=== PATIENT | male | born 1965 | race Caucasian/White ===

== ENCOUNTER 2018-12-01 17:24 | Emergency (ER) | payer BC, OTHER ==
[~2018-12-01] VITALS: Ht 180 cm; Wt 101.7 kg
[2018-12-01] MEDS ORDERED: HYDR28.480 TP (17:44)
[2018-12-01] MEDS ORDERED: CEPH-507 PO (17:44)
--- NOTE | 2018-12-01 17:44 | ED Integumentary General ---
General Chief Complaint: Bite-Animal/Human/Insect Stated Complaint: RT ARM SPIDER BITE Source: patient Exam Limitations: no limitations History of Present Illness Date Seen by Provider: Dec 01, 2018 Time Seen by Provider: 17:39 Initial Comments Patient complains of insect bite to his right forearm that he first noticed at noon today. Since then it is increased in size redness and firmness. It also hurts. No fevers or chills. No streaking. Allergies and Home Medications Patient Home Medication List Home Medication List Reviewed: Yes Review of Systems Review of Systems Constitutional: no symptoms reported EENTM: no symptoms reported Respiratory: no symptoms reported Cardiovascular: no symptoms reported Skin: see HPI Past Dnrtacb-Psgcln-Lkpkqc Hx Patient Social History Recent Foreign Travel: No Contact w/Someone Who Travel: No Physical Exam Vital Signs Capillary Refill : General Appearance: WD/WN, no apparent distress Neck: supple Cardiovascular: regular rate, rhythm Respiratory: lungs clear Gastrointestinal: soft Extremities: normal inspection Neurologic/Psychiatric: alert, normal mood/affect Skin: normal color, warm/dry, other (there is noted centimeter diameter area of redness and induration tenderness to the lateral aspect of right mid forearm. There is no fluctuance. No streaking) Departure Impression Primary Impression: Insect bites Additional Impression: Cellulitis of right arm Disposition: 01 HOME, SELF-CARE Condition: Stable Departure-Patient Inst. Decision time for Depature: 17:41 Referrals: NO,LOCAL PHYSICIAN (PCP) Primary Care Physician Patient Instructions: Cellulitis and Erysipelas (Skin Infections) Add. Discharge Instructions: Take medicines as prescribed. Keep arm elevated as much as possible. Seek medical attention if not improving or if worse in the next 24 hours. All discharge instructions reviewed with patient and/or family. Voiced understanding. Scripts Hydrocortisone/Aloe Vera (Hydrocortisone Plus 1% Cream) 28.4 Gm Cream..g. 28.4 GM TP BID, #1 TUBE Prov: OFELIA NEUMANN MD 12/01/18 Cephalexin (Keflex) 500 Mg Capsule 500 MG PO TID for 7 Days, #21 CAP Prov: OFELIA NEUMANN MD 12/01/18 OFELIA NEUMANN MD Dec 01, 2018 17:44
[2018-12-01 17:49] VITALS: BP 151/89
== END 2018-12-01 17:50 | disposition home or self-care (01) ==
LOC: EDUNIT# 17:24 → ER FS 17:26
DX: S50.861A Insect bite (nonvenomous) of right forearm, initial encounter (principal); L03.113 Cellulitis of right upper limb; W57.XXXA Bitten or stung by nonvenomous insect and other nonvenomous arthropods, initial encounter
CPT/HCPCS: 99283

== ENCOUNTER 2020-11-04 07:13 | Emergency (ER) | payer BC ==
[~2020-11-04] VITALS: Ht 180.3 cm; Wt 113.4 kg
[~2020-11-04 07:13] MED LIST: CEPH-507 PO; HYDR28.480 TP
--- NOTE | 2020-11-04 07:26 | ED Cough/URI ---
General Chief Complaint: Cough/Cold/Flu Symptoms Stated Complaint: COUGH; HEADACHE; SOB History of Present Illness Date Seen by Provider: Nov 04, 2020 Time Seen by Provider: 07:25 Initial Comments Patient is a 54-year-old male who presents with complaints of cough, sore throat, body aches, generalized weakness malaise and fever. Symptoms began 3 to 4 days ago and have gradually progressed. Reports mild dyspnea. He is a smoker but denies history of COPD asthma or CHF. No history of coronary artery di sease. Denies leg pain or swelling. Patient has been treating his symptoms with rest and increased fluid consumption although he has continued to work. Patient has not received the Covid vaccination. Timing/Duration: week, getting worse, changing over time Severity/Quality: mild Prior Episodes/Possible Cause: no prior episodes Modifying Factors: Improves With Other Associated Symptoms: chest pain/soreness, cough, fever/chills, nasal congestion, shortness of breath, sore throat Allergies and Home Medications Allergies Coded Allergies: No Known Drug Allergies (Unverified , 12/01/18) Patient Home Medication List Home Medication List Reviewed: Yes Albuterol Sulfate (Proventil Hfa) 6.7 Gm Hfa.aer.ad, 6.7 GM INH Q4H Prescribed by: SUAD WONG on 11/04/20 075 Azithromycin (Zithromax) 250 Mg Tablet, 250 MG PO UD Prescribed by: SUAD WONG on 11/04/20 075 Cephalexin (Keflex) 500 Mg Capsule, 500 MG PO TID Prescribed by: OFELIA NEUMANN on 12/01/18 1744 Hydrocortisone/Aloe Vera (Hydrocortisone Plus 1% Cream) 28.4 Gm Cream..g., 28.4 GM TP BID Prescribed by: OFELIA NEUMANN on 12/01/18 174 Prednisone (Prednisone) 20 Mg Tab, 60 MG PO DAILY Prescribed by: SUAD WONG on 11/04/20 0756 Review of Systems Review of Systems Constitutional: see HPI EENTM: see HPI Respiratory: see HPI Cardiovascular: see HPI Gastrointestinal: see HPI Genitourinary: see HPI Musculoskeletal: see HPI Skin: see HPI Psychiatric/Neurological: See HPI Hematologic/Lymphatic: See HPI Immunological/Allergic: see HPI All Other Systems Reviewed Negative Unless Noted: Yes Past Acbqpxi-Iuqvlq-Rstshb Hx Patient Social History Tobacco Use?: Yes Seasonal Allergies Seasonal Allergies: No Past Medical History Surgeries: Yes Orthopedic Respiratory: No Cardiac: No Neurological: No Genitourinary: No Gastrointestinal: No Musculoskeletal: No Endocrine: No HEENT: No Cancer: No Psychosocial: No Integumentary: No Psoriasis Physical Exam Vital Signs - First Documented 11/04/20 07:27 Temp 36.6 Pulse 85 Resp 18 B/P (MAP) 147/77 (100) Pulse Ox 94 O2 Delivery Room Air Capillary Refill : Height: '" Weight: lbs. oz. kg; 31.00 BMI Method: General Appearance: WD/WN, no apparent distress Eyes: Bilateral Eye Normal Inspection, Bilateral Eye PERRL, Bilateral Eye EOMI HEENT: PERRL/EOMI, normal ENT inspection Neck: supple Respiratory: normal breath sounds, decreased breath sounds, other Cardiovascular: normal peripheral pulses, regular rate, rhythm Gastrointestinal: non tender, soft Extremities: normal range of motion, non-tender Neurologic/Psychiatric: alert, oriented x 3 Skin: normal color Lymphatic: no adenopathy Focused Exam Sepsis Stage: Ruled Out Progress/Results/Core Measures Suspected Sepsis SIRS Temperature: Pulse: Respiratory Rate: Blood Pressure / Mean: Results/Orders Lab Results Laboratory Tests Test 11/04/20 07:30 Range/Units Influenza Type A Antigen NEGATIVE NEGATIVE Influenza Type B Antigen NEGATIVE NEGATIVE My Orders Orders - SUAD WONG DO Chest 1 View Ap/Pa Only (11/04/20 07:31) Influenza A & B Antigens (11/04/20 07:38) Vital Signs/I&O 11/04/20 11/04/20 07:27 07:36 Temp 36.6 Pulse 85 Resp 18 B/P (MAP) 147/77 (100) Pulse Ox 94 O2 Delivery Room Air Room Air Capillary Refill : Departure Communication (Admissions) Chest x-ray: Influenza: Patient symptoms suggestive of Covid. He is not currently hypoxic requiring oxygen. Influenza and chest x-ray reviewed. Patient would benefit from out patient Covid testing and would be a potential candidate for antibiotic infusion. Will place on steroids inhaler and antibiotics. Return precautions reviewed. Impression Primary Impression: Acute viral syndrome Disposition: 01 HOME, SELF-CARE Condition: Stable Departure-Patient Inst. Decision time for Depature: 07:55 Referrals: SELF,MELO SMITH (PCP/Family) Primary Care Physician Patient Instructions: Viral Upper Respiratory Infection, Adult (DC) Add. Discharge Instructions: You were evaluated in the emergency department for Covid-like symptoms. Chest x-ray and flu swabs were performed and are nondiagnostic. Please contact your PCP or urgent care to arrange for outpatient Covf inabilityid testing. Otherwise stay home and self quarantine, monitor home oxygen levels, and take newly prescribed medications as prescribed. If Covid positive you are likely a candidate for antibody infusion therapy. Please contact your PCP to make arrangements for infusions. Return if inability to maintain oxygen saturation greater than 90% at rest or other concerning symptoms. All discharge instructions reviewed with patient and/or family. Voiced understanding. Scripts Azithromycin (Zithromax) 250 Mg Tablet 250 MG PO UD, #6 TAB TAKE 2 TABLETS TODAY, THEN TAKE 1 TABLET DAILY FOR 4 MORE DAYS Prov: SUAD WONG DO 11/04/20 Albuterol Sulfate (Proventil Hfa) 6.7 Gm Hfa.aer.ad 6.7 GM INH Q4H, #1 GM Prov: SUAD WONG DO 11/04/20 Prednisone (Prednisone) 20 Mg Tab 60 MG PO DAILY, #6 TAB 0 Refills Prov: SUAD WONG DO 11/04/20 SUAD WONG DO Nov 04, 2020 07:26
[2020-11-04 07:27] VITALS: BP 147/77
[2020-11-04] MEDS ORDERED: AZIT250T PO (07:56)
[2020-11-04] MEDS ORDERED: PRD20T PO (07:56)
[2020-11-04] MEDS ORDERED: ALBU6.7H8 INH (07:56)
--- NOTE | 2020-11-04 08:02 | Diagnostic Imaging Report ---
CHEST 1 VIEW AP/PA ONLY Indication: Cough Comparison: None available. Findings: No focal airspace disease in the visualized lungs. Please note that the posterior lower lobes are poorly evaluated by portable radiography. No pleural effusion or pneumothorax. Normal cardiomediastinal silhouette. Impression: 1. No acute cardiopulmonary process by portable radiography. Dictated by: Dictated on workstation # [id number]
== END 2020-11-04 08:26 | disposition home or self-care (01) ==
LOC: EDUNIT# 07:13 → ER FS 07:14
DX: B34.9 Viral infection, unspecified (principal); F17.290 Nicotine dependence, other tobacco product, uncomplicated
CPT/HCPCS: 71045; 87804

== ENCOUNTER 2021-02-06 09:18 | Outpatient (CLI) | payer BC ==
[~2021-02-06] VITALS: Ht 180 cm; Wt 98.3 kg
[~2021-02-06 09:18] MED LIST changes: +ALBU6.7H8 INH; +AZIT250T PO; +PRD20T PO
[2021-02-06 09:31] VITALS: BP 142/77
[2021-02-06] MEDS ORDERED: BAMLANIVIMAB 700 MG/ETESEVIMAB 1,400 MG IN NS IV ONE ×3 (09:45)
[2021-02-06] MEDS ORDERED: EPINEPHrine INJECTION 1 MG/ML AMP IM PRN (09:45)
[2021-02-06] MEDS ORDERED: ACETAMINOPHEN 500 MG TAB (TYLENOL) PO PRN (09:45)
[2021-02-06] MEDS ORDERED: diphenhydrAMINE 50 MG/ML INJ (BENADRYL) IV PRN (09:45)
[2021-02-06] MEDS ORDERED: ONDANSETRON 4 MG/2 ML (SDV) Z0FRAN IV PRN (09:45)
[2021-02-06 11:07] VITALS: BP 138/76
== END 2021-02-06 11:07 ==
LOC: INFUSION 09:18
PROVIDERS: ATTEND Family Medicine
DX: U07.1 COVID-19 (principal)

== ENCOUNTER 2021-11-23 20:04 | Emergency (ER) | payer BC ==
[~2021-11-23] VITALS: Ht 180.3 cm; Wt 90.2 kg
[~2021-11-23 20:04] MED LIST changes: +ALBU6.7H13 INH; -ALBU6.7H8 INH
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
[2021-11-23] MEDS ORDERED: TETANUS,DIPTH,PERTUSS P/F (BOOSTRIX) 0.5 ML VIAL IM ONE (21:45)
[2021-11-23] MEDS ORDERED: BACITRACIN OINTMENT 28 GM TUBE TOP STA (21:52)
[2021-11-23 22:05] VITALS: BP 146/84
== END 2021-11-23 22:05 | disposition home or self-care (01) ==
LOC: EDUNIT# 20:04 → ER FS 20:06
DX: S01.81XA Laceration without foreign body of other part of head, initial encounter (principal); S61.412A Laceration without foreign body of left hand, initial encounter; S61.411A Laceration without foreign body of right hand, initial encounter; S51.812A Laceration without foreign body of left forearm, initial encounter; S51.811A Laceration without foreign body of right forearm, initial encounter; F17.200 Nicotine dependence, unspecified, uncomplicated; Z23 Encounter for immunization; Z28.310 Unvaccinated for COVID-19; Y04.8XXA Assault by other bodily force, initial encounter
CPT/HCPCS: 90715

== ENCOUNTER 2022-04-23 21:37 | Emergency (ER) | payer SELFPAY ==
[~2022-04-23] VITALS: Ht 172.7 cm; Wt 90.8 kg
[2022-04-23 21:41] VITALS: BP 169/97
[2022-04-23] MEDS ORDERED: KETOROLAC 15 MG/ML VIAL IM ONE (21:45)
--- NOTE | 2022-04-23 21:48 | ED General ---
General Stated Complaint: MIGRAINE HEADACHE,COUGH,COLD CHILLS, HOT FLASHES Source of Information: Patient, Family (son) Exam Limitations: No Limitations History of Present Illness Date Seen by Provider: Apr 23, 2022 Time Seen by Provider: 21:38 Initial Comments 56-year-old male presents to the emergency department today for cough, headache, body aches, chills. Symptoms started on Saturday and have been progressive. He states he feels like he does when he had COVID. No sick contacts. He has been immunized. Cough is minimally productive. He does have a history of psoriasis. All other systems reviewed and negative except documented per HPI. Voice recognition software was used to help create this chart Allergies and Home Medications Allergies Coded Allergies: No Known Drug Allergies (Unverified , 12/01/18) Patient Home Medication List Home Medication List Reviewed: Yes Albuterol Sulfate (Proventil Hfa) 6.7 Gm Hfa.aer.ad, 6.7 GM INH Q4H Prescribed by: SUAD WONG on 11/04/20 0756 Azithromycin (Zithromax) 250 Mg Tablet, 250 MG PO UD Prescribed by: SUAD WONG on 11/04/20 0756 Cephalexin (Keflex) 500 Mg Capsule, 500 MG PO TID Prescribed by: OFELIA NEUMANN on 12/01/18 1744 Hydrocortisone/Aloe Vera (Hydrocortisone Plus 1% Cream) 28.4 Gm Cream..g., 28.4 GM TP BID Prescribed by: OFELIA NEUMANN on 12/01/18 1744 Prednisone (Prednisone) 20 Mg Tab, 60 MG PO DAILY Prescribed by: SUAD WONG on 11/04/20 0756 Review of Systems Review of Systems Constitutional: chills Past Iqqmsgz-Ltwgbw-Hhmyzj Hx Patient Social History Tobacco Use?: Yes Use of E-Cig and/or Vaping dev: No Substance use?: No Alcohol Use?: No Seasonal Allergies Seasonal Allergies: No Past Medical History Surgeries: Yes Orthopedic Respiratory: No Cardiac: No Neurological: No Genitourinary: No Gastrointestinal: No Musculoskeletal: No Endocrine: No HEENT: No Cancer: No Psychosocial: No Integumentary: No Psoriasis Family Medical History Reviewed Nursing Family Hx No Pertinent Family Hx Physical Exam Vital Signs Vital Signs - First Documented 04/23/22 21:41 Temp 38.1 Pulse 107 Resp 18 B/P (MAP) 169/97 (121) Pulse Ox 98 O2 Delivery Room Air Capillary Refill : Height, Weight, BMI Height: '" Weight: lbs. oz. kg; 27.00 BMI Method: General Appearance: No Apparent Distress, WD/WN HEENT: PERRL/EOMI, TMs Normal, Normal ENT Inspection, Pharynx Normal Neck: Full Range of Motion, Normal Inspection, Non Tender, Supple Respiratory: Chest Non Tender, Lungs Clear, Normal Breath Sounds, No Accessory Muscle Use, No Respiratory Distress Cardiovascular: No Murmur, Normal Peripheral Pulses, Tachycardia Gastrointestinal: Normal Bowel Sounds, No Organomegaly, No Pulsatile Mass, Non Tender, Soft Back: Normal Inspection, No Vertebral Tenderness Extremity: Normal Capillary Refill, Normal Inspection, Normal Range of Motion, Non Tender, No Calf Tenderness, Other (Few psoriatic plaques on bilateral arms.) Neurologic/Psychiatric: Alert, Oriented x3, Normal Mood/Affect Skin: Other (Psoriatic plaques as above.) Progress/Results/Core Measures Suspected Sepsis SIRS Temperature: Pulse: Respiratory Rate: Blood Pressure / Mean: Results/Orders My Orders Orders - GISSEL MCKEON DO Chest Pa/Lat (2 View) (04/23/22 21:45) Ketorolac Injection (Toradol Injection) (04/23/22 21:45) Acetaminophen Tablet (Tylenol Tablet) (04/23/22 22:00) Vital Signs/I&O 04/23/22 21:41 Temp 38.1 Pulse 107 Resp 18 B/P (MAP) 169/97 (121) Pulse Ox 98 O2 Delivery Room Air Capillary Refill : Departure Communication (Admissions) I have independently reviewed the chest x-ray. No evidence for focal pneumonia indicating bacterial origin. His vital signs are reassuring. He does have a slight fever, tachycardia in accordance, very mild. Blood pressure stable and oxygen saturations are normal. Lungs are clear. I believe this is likely COVID. Did treat his headache with Toradol as he is driving and I cannot give him any sedating medications. He will be discharged home with supportive care in otherwise stable condition. Impression Primary Impression: Acute viral syndrome Disposition: 01 HOME, SELF-CARE Condition: Stable Departure-Patient Inst. Referrals: SELF,MELO SMITH (PCP/Family) Primary Care Physician Patient Instructions: Viral Upper Respiratory Infection, Adult (DC) Add. Discharge Instructions: Alternate Tylenol and ibuprofen as needed for fever, headache and body aches. Increase your fluids at home. Rest. Do not return to work until you are fever free for 24 hours. Work/School Note: Work Release Form Date Seen in the Emergency Department: Apr 23, 2022 Return to Work: Apr 25, 2022 Restrictions: Return-No Fever (24hrs) GISSEL MCKEON DO Apr 23, 2022 21:48
--- NOTE | 2022-04-23 21:56 | Diagnostic Imaging Report ---
CHEST PA/LAT (2 VIEW) Indication: Cough and fever Comparison: 11/04/2020 Findings: No pulmonary mass or consolidation. No pleural effusion or pneumothorax. Normal heart size and mediastinal contours. Impression: No acute cardiopulmonary process. Dictated by: Dictated on workstation # [id number]
[2022-04-23] MEDS ORDERED: ACETAMINOPHEN 500 MG TAB (TYLENOL) PO ONE (22:00)
== END 2022-04-23 22:00 | disposition home or self-care (01) ==
LOC: EDUNIT# 21:37 → ER FS 21:40
DX: B34.9 Viral infection, unspecified (principal); R05.9 Cough, unspecified; R50.9 Fever, unspecified; R00.0 Tachycardia, unspecified; R51.9 Headache, unspecified; F17.200 Nicotine dependence, unspecified, uncomplicated; Z28.310 Unvaccinated for COVID-19
CPT/HCPCS: 71046